=== PATIENT | female | born 1970 | race American Indian/Alaskan Native ===

== ENCOUNTER 2021-08-10 13:41 | Inpatient (IN) ==
[2021-08-10 14:13] LABS: ABS Basophils 0.2 10^3/ul (0-0.2); ABS Eosinophils 0.4 10^3/ul (0-0.6); ABS Lymphocytes 1.2 10^3/ul (1.0-4.8); ABS Neutrophils 16.3 10^3/ul (1.5-7.7); Eosinophil % 1.9 %; Hematocrit 31 % (35-47); Hemoglobin 9.7 g/dL (12.0-16.0); Lymphocyte % 6.2 %; Mean Corpuscular HGB Conc 31 g/dL (31-36); Mean Corpuscular Hemoglobin 24 pg (27-31); Mean Corpuscular Volume 77 fL (80-97); Mean Platelet Volume 5.7 fL (7.4-10.4); Nucleated Red Blood Cells % 0.1; Platelet Count 736 10^3/uL (150-450); Red Blood Count 4.03 10^6 /uL (3.70-4.87); Red Cell Distribution Width 15 % (10-15)
[2021-08-10 14:24] LABS: INR 1.22 (0.86-1.15)
[2021-08-10 14:37] LABS: High Sens Troponin Baseline 37 pg/mL (<15)
[2021-08-10 14:59] LABS: ALT 15 U/L (7-52); AST 9 U/L (13-39); Albumin 3.4 g/dL (3.2-5.2); Alkaline Phosphatase 86 U/L (35-149); Anion Gap 9 mmol/L (2-11); Blood Urea Nitrogen 6 mg/dL (6-24); CO2 Carbon Dioxide 28 mmol/L (22-32); Calcium 8.8 mg/dL (8.6-10.3); Chloride 101 mmol/L (101-111); Globulin 3.3 g/dL (2-4); Glucose 86 mg/dL (70-100); Potassium 4.2 mmol/L (3.5-5.0); Sodium 138 mmol/L (135-145); Total Protein 6.7 g/dL (6.4-8.9); eGFR CKD-EPI 109.3 (>60)
[2021-08-10 15:33] LABS: High Sensitivity Troponin 1 Hr 4 pg/mL (<15)
[2021-08-10 17:56] LABS: Activated Partial Thrombo Time 27.4 seconds (26.0-38.0)
[2021-08-10] MEDS ORDERED: Iohexol 350 (CONTRAST) 500 ML MDV IV ONE (19:14)
[2021-08-10 20:59] LABS: Urine Appearance Clear; Urine Color Yellow; Urine Ketones 3+ (80mg/dL) (Negative); Urine Protein Negative (Negative); Urine Urobilinogen 0.2 (Negative) (Negative)
[2021-08-10 21:00] LABS: Urine Bilirubin Negative (Negative); Urine Blood 1+ (Small) (Negative); Urine Glucose Negative (Negative); Urine Nitrite Negative (Negative)
[2021-08-10 21:17] LABS: Urine Bacteria Absent (Absent); Urine Red Blood Cell 1+(3-5/hpf) (Absent); Urine Squamous Epithelial Cell Present (Absent); Urine White Blood Cell Trace(0-5/hpf) (Absent)
[2021-08-10] MEDS ORDERED: Ondansetron 4 mg VIAL 2 MG/ML 2 ml VIAL IV ONE (21:49)
[2021-08-10] MEDS ORDERED: Morphine 4 MG/ML VIAL (1 ml) IV ONE (21:50)
[2021-08-10] MEDS ORDERED: oxyCODONE/Acetamin 5/325 mg TAB PO PRN ×2 (22:00→23:14)
[2021-08-10] MEDS ORDERED: Al Hydrox/Mg Hydrox/Simet LIQ 30 ML UDC PO ONE (22:00)
[2021-08-10] MEDS ORDERED: Acetaminophen IV 1 GM/100ML 100 ML IV PRN (23:13)
[2021-08-10] MEDS: cefTRIAXone 1 gm/50 mL D5W 1 GM/50 ML BAG IV SCH (23:46)
[2021-08-11] MEDS: Azithromycin 500 mg/250 ml NS 500 MG/250 ML BAG IVPB SCH (00:51)
[2021-08-11] MEDS: Heparin 5000 UNITS/ML 1 mL VIAL SUBCUT SCH ×3 (00:51→14:25)
[2021-08-11 02:49] LABS: Total Iron Binding Capacity 319 mcg/dL (250-450); Transferrin 228 mg/dL (203-362)
[2021-08-11 02:52] LABS: % Iron Saturation 6 % (15-55); Iron < 20 ug/dL (50-212); Unsaturated Iron Binding 299 ug/dL
[2021-08-11] MEDS: Ondansetron 4 mg VIAL 2 MG/ML 2 ml VIAL IV PRN ×3 (04:42→20:52)
[2021-08-11] MEDS ORDERED: Lorazepam PYXIS KEY ONE (08:08)
[2021-08-11] MEDS ORDERED: LORazepam 2 mg VIAL 1 ml ONE (08:09)
[2021-08-11] MEDS ORDERED: Lorazepam PYXIS KEY PRN ×2 (08:12→14:01)
[2021-08-11] MEDS ORDERED: Morphine 2 MG/ML SYRINGE IV ONE (08:13)
[2021-08-11] MEDS ORDERED: LORazepam 2 mg VIAL 1 ml IV PUSH ONE (08:13)
[2021-08-11] MEDS: LORazepam 2 mg VIAL 1 ml IV PUSH PRN ×2 (14:16→21:43)
[2021-08-11] MEDS ORDERED: Iron Sucrose 200 MG in NS 0.9% 100 ml BAG 100 ML IVPB SCH (16:59)
[2021-08-11 17:48] LABS: LDH 207 U/L (140-271)
[2021-08-12] MEDS: cefTRIAXone 1 gm/50 mL D5W 1 GM/50 ML BAG IV SCH (00:43)
[2021-08-12] MEDS: Azithromycin 500 mg/250 ml NS 500 MG/250 ML BAG IVPB SCH (01:59)
[2021-08-12] MEDS: Ondansetron 4 mg VIAL 2 MG/ML 2 ml VIAL IV PRN ×2 (02:57→07:52)
[2021-08-12 06:17] LABS: Hematocrit 30 % (35-47); Hemoglobin 9.6 g/dL (12.0-16.0); Mean Corpuscular HGB Conc 32 g/dL (31-36); Mean Corpuscular Hemoglobin 25 pg (27-31); Mean Corpuscular Volume 77 fL (80-97); Mean Platelet Volume 5.9 fL (7.4-10.4); Platelet Count 755 10^3/uL (150-450); Red Blood Count 3.87 10^6 /uL (3.70-4.87); Red Cell Distribution Width 16 % (10-15); White Blood Count 25.5 10^3/uL (3.5-10.8)
[2021-08-12] MEDS: LORazepam 2 mg VIAL 1 ml IV PUSH PRN (06:26)
[2021-08-12 06:43] LABS: Calcium 8.5 mg/dL (8.6-10.3); Magnesium 1.7 mg/dL (1.9-2.7); Phosphorus 3.2 mg/dL (2.5-5.0); Potassium 4.1 mmol/L (3.5-5.0); eGFR CKD-EPI 110.4 (>60)
[2021-08-12] MEDS ORDERED: Magnesium Sulfate IV 3 GM in NS 0.9% 100 ml BAG 100 ML IVPB ONE (07:10)
[2021-08-12] MEDS ORDERED: Magnesium Sulfate 2 GM IV (Premix) IVPB ONE (07:30)
[2021-08-12 08:16] LABS: ABS Basophils 0.3 10^3/ul (0-0.2); ABS Eosinophils 0.5 10^3/ul (0-0.6); ABS Lymphocytes 0.9 10^3/ul (1.0-4.8); ABS Monocytes 1.3 10^3/ul (0-0.8); ABS Neutrophils 22.6 10^3/ul (1.5-7.7); Eosinophil % 1.9 %; Lymphocyte % 3.5 %
[2021-08-12] MEDS: Prochlorperazine 5 mg/ml 2 ml VIAL (10 mg) IV PRN ×2 (08:20→13:50)
[2021-08-12] MEDS ORDERED: Magnesium Sulfate 1 GM IV 1 GM/100 ML BAG IV ONE (08:30)
[2021-08-12 15:25] VITALS: BP 102/64
[2021-08-12] MEDS ORDERED: cefTRIAXone 1 gm/50 mL D5W 1 GM/50 ML BAG IV SCH (23:30)
[2021-08-13] MEDS ORDERED: Azithromycin 500 mg/250 ml NS 500 MG/250 ML BAG IVPB SCH
== END 2021-08-12 17:00 | disposition left against medical advice (07) | DRG 139 ==
LOC: EDBD → ED 13:41 → SUATTDRO 23:02 → EDHOLD 23:02 → MED 08-11 06:38
PROVIDERS: ADMIT Internal Medicine; ATTEND Student in an Organized Health Care Education/Training Program